=== PATIENT | female | born 1985 | race Caucasian/White ===

== ENCOUNTER 2016-11-02 09:25 | Emergency (ER) | payer OTHER ==
[~2016-11-02] VITALS: Ht 170.2 cm; Wt 100.0 kg
[2016-11-02 09:30] VITALS: BP 134/95; PULSE 83; RESP 20; O2SAT 100
--- NOTE | 2016-11-02 09:49 | ED.REPORT ---
HPI-NVD Date of Service Nov 02, 2016 ED Provider: Krunal Bryant MD Patient is a 31 year old female who presents to the ED due to vomiting and diarrhea onset 4 days ago. Symptoms last 2 days, abated for one day, then returned again yesterday. She woke up yesterday feeling improved, no fever, but still tired and weak. She went to work for 2.5 hrs, returned home and began vomiting again, with recurrent episodes throughout the night. She states she "can't get enough to drink." She started feeling lightheaded this morning. The diarrhea has stopped. She c/o associated malaise, fever the first 2 days of illness and consistent diaphoresis and chills. Some of her coworkers have been ill. Pt denies dysuria, cough, , rashes, edema. Nursing Notes Stated Complaint: DIZZY/VOMITING/DIARRHEA/POSS DEHYDRATION Chief Complaint: Female Abdominal Pain Nursing Notes Reviewed: Yes (Family Pet, Spinal USAs not reconciled) Allergies: Coded Allergies: acetaminophen (Verified Allergy, Mild, 08/04/16) hydrocodone (Verified Allergy, Mild, 08/04/16) aspirin (Verified Adverse Reaction, Severe, Nausea,Vomiting, 11/02/16) Scheduled PRN Ondansetron ODT (Ondansetron ODT) 8 Mg Tab.rapdis 8 MG PO Q4H PRN PRN For Nausea General Time Seen by MD: 09:42 Chief Complaint Vomiting Hx Obtained From: Patient Arrived By: Walk-in Onset Occurred: 4 days ago Symptom Duration: Since onset Vomiting: Vomiting clear Location: : No pain Severity: Current: No pain currently Associated with: Reports: Fever Recent Healthcare: No recent doctor visit, No recent hospitalization Similar Sx Previous: No Past Medical History Past Medical History denies Past Surgical History jaw surgery Reports: Appendectomy, Cholecystectomy Smoking History Former Smoker Social History Alcohol Use: Denies alcohol use Drug Use: Denies drug use Other Social History: Occupation no work or school 08/04/2016 Review of Systems Constitutional: Reports: Chills, Fever, Malaise GI: Reports: Diarrhea, Nausea, Vomiting Skin: Reports Diaphoresis, Denies Rash Complete sys rev & neg: except as marked. Respiratory: Denies: Non-productive cough Female: Denies: Dysuria Musculoskeletal: Denies: Extremity swelling Physical Exam Initial Vital Signs Vital Signs (First) Date Time Temp Pulse Resp B/P Pulse Ox O2 Delivery O2 Flow Rate FiO2 11/02/16 09:30 37.1 83 20 134/95 100 Room Air Initial VS: Reviewed, Vital signs normal Head / Eyes: Atraumatic, Normocephalic, PERRL ENT: Mucous membranes moist, Conjunctiva normal, No scleral icterus Neck: Supple, Non-tender, Full range of motion Respiratory: Breath sounds normal, Clear to auscultation, No respiratory distress Cardiovascular: Regular rate & rhythm, Heart sounds normal, Intact distal pulses Back: No CVA tenderness Lymphatic: No lymphadenopathy Extremities: Vascular intact, Neuro intact, No swelling, No tenderness Skin: Warm, Dry, No cyanosis Neurologic: Alert, Oriented, Nonfocal Psychiatric: Mood/affect normal, Behavior normal, Normal thought content General/Constitutional: Awake, Cooperative extremely fatigued globablly weak Abdomen: Atraumatic, Soft, Non-tender, No guarding, No rebound, BS normoactive Interpretation & Diagnostics Lab Results Interpretation Result Diagram: 11/02/16 1045 11/02/16 1045 Test 11/02/16 10:45 11/02/16 12:10 White Blood Count 5.8th/mm3 (3.8-10.1) Red Blood Count 4.55mil/mm3 (3.90-5.20) Hemoglobin 14.2g/dL (12.0-15.6) Hematocrit 40.6% (35.0-46.0) Mean Corpuscular Volume 89.2fL (81-100) Mean Corpuscular Hemoglobin 31.2pg (27.0-35.0) Mean Corpuscular Hemoglobin Concent 35.0% (32.0-37.0) Red Cell Distribution Width 12.8% (12.3-15.4) Platelet Count 186bil/L (150-400) Neutrophils (%) (Auto) 71.2% (40-74) Lymphocytes (%) (Auto) 21.0% (14-46) Monocytes (%) (Auto) 4.7% (4-12) Eosinophils (%) (Auto) 2.6% (0-5) Basophils (%) (Auto) 0.2% (0-3) Sodium Level 138mEq/L (134-144) Potassium Level 3.6mEq/L (3.5-5.2) Chloride Level 102mEq/L (97-108) Carbon Dioxide Level 23mmol/L (18-29) Blood Urea Nitrogen 10mg/dL (6-20) Creatinine 0.63mg/dL (0.57-1.00) Estimat Glomerular Filtration Rate 158mL/min (>59) Glucose Level 98mg/dL (60-99) Calcium Level 8.4mg/dL (8.5-10.1) Total Bilirubin 1.1mg/dL (0.0-1.2) Aspartate Amino Transf (AST/SGOT) 19U/L (0-50) Alanine Aminotransferase (ALT/SGPT) 15U/L (0-32) Alkaline Phosphatase 92U/L (25-150) Total Protein 6.8g/dL (6.4-8.4) Albumin 4.1g/dL (3.4-5.0) Human Chorionic Gonadotropin, Qual <0.500 (Negative) Urine Color Straw (YELLOW) Urine Appearance Hazy (CLEAR,HAZY) Urine pH 6.5 (5.0-8.0) Urine Specific Wilson 1.005 (1.003-1.035) Urine Protein Negativemg/dL (NEG,TRACE) Urine Glucose (UA) Negativemg/dL (NEGATIVE) Urine Ketones Negativemg/dL (NEGATIVE) Urine Occult Blood Small (NEGATIVE) Urine Nitrite Negative (NEGATIVE) Urine Bilirubin Negative (NEGATIVE) Urine Urobilinogen Normalmg/dL (NORMAL) Urine Leukocyte Esterase Small (NEGATIVE) Urine RBC 0-2/hpf (0-2) Urine WBC 0-5/hpf (0-5) Urine Epithelial Cells Occasional/hpf (NONE-MOD) Urine Crystals None seen (NONE SEEN) Urine Bacteria None/hpf (NONE-FEW) Urine Hyaline Casts None/lpf (NONE) Urine Granular Casts None seen (NONE SEEN) Urine Waxy Casts None seen (NONE SEEN) Urine Red Blood Cell Casts None seen (NONE SEEN) Urine White Blood Cell Casts None seen (NONE SEEN) Urine Mucus None seen (None Seen) Urine Trichomonas None seen (NONE SEEN) Urine Yeast None (NONE SEEN) Urinalysis Comment None Urine Culture Reflexed Indicated Urine HCG, Qualitative Negative (Negative) Lab Results Interpretation: CBC normal CMP normal Urine has trace leuks, but no other findings of UTI-patient has no symptoms of UTI and I do not think has a urinary infection, cultures pending Re-Eval/Medical Decision Med Decision/Clinical Course This is a 31-year-old female developed nausea and vomiting diarrhea and fever 4 days ago, the diarrhea is resolved, she initially saw she is feeling better one pack work yesterday, but nausea vomiting persisted and worsened today such as coming in ED. Been trying to drink, reports as having a really difficult time, is now feeling dizzy and dehydrated. Patient appears quite fatigued, but is not toxic. She also does not have palpable abdominal tenderness or findings of an acute surgical abdomen on exam. Her labs are normal. She was hydrated with 2 L, received antiemetics-and feels much improved. She passed an oral challenge, or scuffle discharged home. Supportive measures discussed. Routine precautions reviewed, discharge instructions reviewed. Patient is being discharged with some ondansetron. Source of Hx: Old records Re-Evaluation/Progress #1: Time of Eval: 11:48 Patient Status: Condition improved, Moderate relief Re-Evaluation/Progress Note: Pt rechecked. Medication is helping, nausea has decreased. Re-Evaluation/Progress #2: Time of Eval: 13:24 Patient Status: Condition improved, Moderate relief Re-Evaluation/Progress Note: Pt continues to feel better. She does not feel nauseous anymore. Plans for Zofran. Differential Diagnosis: Positive: Dehydration, Negative: Appendicitis, Boerhaave syndrome, Bowel obstruction, C. diff colitis, Crohn's disease, Drug overdose, Drug toxicity, Drug-med reaction, Inflam bowel disease, Labyrinthitis, Meniere's disease, Pancreatitis, Peptic ulcer disease, , Ulcerative colitis Counseled Regarding: Diagnosis, Lab results, Need for follow-up, When/why to return to ED Discharge & Departure Impression: Primary Impression: Vomiting Vomiting type: unspecified Vomiting Intractability: unspecified Nausea presence: with nausea Qualified Code: R11.2 - Nausea with vomiting, unspecified Additional Impression: Dehydration Disposition: Home Discharge Condition All VS Reviewed: Yes Condition: Stable Additional Instructions: 1. Your blood tests were normal. 2. Your symptoms, tests, and exam are highly suspicious for a viral infection being the likely cause. 3. Continue to drink frequent sips of fluids, slowly advance diet as tolerated. (You do not need to follow a special diet, simply start with small amounts of your normal diet) 4. If needed for nausea, take ondansetron 8 mg-lead dissolve underneath tongue- up to every 4 hours as needed. 5. Return if new, worsening or uncontrolled symptoms occur Referrals: NOPCP (PCP) Violetaibe Attestation Portion of this note were transcribed by Yvonne Ryder. I, Dr. Bryant, personally performed the history, physical exam, and medical decision-making: I reviewed and confirmed the accuracy for the information in the transcribed note. Signed by: torin Toledo, 11/02/16 1500 Krunal Bryant MD Nov 02, 2016 09:49 Yvonne Ryder Nov 02, 2016 10:17
[2016-11-02] MEDS ORDERED: Promethazine Inj 25 MG in Dextrose 5%-Pha MIX 50 ML IV ONE (10:35)
[2016-11-02] MEDS ORDERED: 0.9% Sodium Chloride 1,000 ML IV ONE ×2 (10:35)
[2016-11-02 11:17] LABS: BASOPHILS % (AUTO) 0.2 % (0-3); EOSINOPHILS % (AUTO) 2.6 % (0-5); MONOCYTES % (AUTO) 4.7 % (4-12); Mean Corpuscular Hemoglobin 31.2 pg (27.0-35.0); Mean Corpuscular Volume 89.2 fL (81-100); NEUTROPHILS % (AUTO) 71.2 % (40-74); Platelet Count 186 bil/L (150-400)
[2016-11-02 12:25] LABS: APPEARANCE,URINE HAZY (CLEAR,HAZY); COLOR,URINE STRAW (YELLOW); OCCULT BLOOD,URINE SMALL (NEGATIVE); PH,URINE 6.5 (5.0-8.0)
[2016-11-02 12:26] LABS: UROBILINOGEN,URINE NORMAL (NORMAL)
[2016-11-02] MEDS ORDERED: ONDA8TAB10 PO (13:45)
[2016-11-02 15:31] VITALS: BP 125/69; PULSE 75
== END 2016-11-02 15:37 | disposition home or self-care (01) ==
LOC: SED 09:25
DX: R11.2 Nausea with vomiting, unspecified (principal); E86.0 Dehydration; R19.7 Diarrhea, unspecified; R53.83 Other fatigue; R53.1 Weakness; R42 Dizziness and giddiness; R50.9 Fever, unspecified; Z87.891 Personal history of nicotine dependence; Z88.5 Allergy status to narcotic agent; Z88.8 Allergy status to other drugs, medicaments and biological substances
CPT/HCPCS: 36415; 80053; 81000; 81025; 84703; 85025; 87086; 87088; 96361; 96374; 96375; 99284; J1200; J2550; J7030